=== PATIENT | male | born 1980 | race Caucasian/White ===

== ENCOUNTER 2017-03-07 16:09 | Emergency (ER) | payer BC ==
[2017-03-07] MEDS ORDERED: SODIUM CHLORIDE 0.9% 1,000 ML IV ONE (16:16)
[2017-03-07] MEDS ORDERED: ONDANSETRON 4 MG/2 ML VIAL IVP STA ×2 (16:16→18:57)
[2017-03-07] MEDS ORDERED: KETOROLAC 30 MG/ML 1 ML VIAL IVP STA (16:16)
[2017-03-07 16:20] VITALS: RESP 18
[2017-03-07 16:43] LABS: Basophils % (A) 0 %; Eosinophils # (A) 0.2 k/uL (0-0.7); Eosinophils % (A) 2 %; HCT 44.2 % (39.0-53.0); Hyperchromasia Slight; Lymphocytes # (A) 0.4 k/uL (1.0-4.8); Lymphocytes % (A) 4 %; MCH 29.9 pg (25.0-35.0); MCHC 36.2 g/dL (31.0-37.0); MCV 82.4 fL (80.0-100.0); Mean Platelet Volume 6.5; Monocytes # (A) 0.4 k/uL (0-1.0); Monocytes % (A) 4 %; Neutrophils # (A) 8.5 k/uL (1.3-7.7); Neutrophils % (A) 89 %; Platelet Count 227 k/uL (150-450); RBC 5.37 m/uL (4.30-5.90); RDW 12.7 % (11.5-15.5); WBC 9.6 k/uL (3.8-10.6)
[2017-03-07 16:55] LABS: ALT 66 U/L (21-72); AST 28 U/L (17-59); Albumin 4.1 g/dL (3.5-5.0); Alkaline Phosphatase 74 U/L (38-126); Blood Urea Nitrogen 18 mg/dL (9-20); Calcium 9.2 mg/dL (8.4-10.2); Carbon Dioxide 26 mmol/L (22-30); Glucose 112 mg/dL (74-99); Lipase 70 U/L (23-300); Potassium 4.2 mmol/L (3.5-5.1); Sodium 139 mmol/L (137-145); Total Bilirubin 1.8 mg/dL (0.2-1.3); Total Protein 7.4 g/dL (6.3-8.2)
[2017-03-07 16:56] LABS: Anion Gap 9 mmol/L; Chloride 104 mmol/L (98-107)
--- NOTE | 2017-03-07 17:04 | ED ---
Abdominal Pain HPI - General Stated Complaint: Abd pain Time Seen by Provider: 03/07/17 16:15 Source: patient, EMS Mode of arrival: EMS Limitations: no limitations - History of Present Illness Initial Comments: 36 year male presented for evaluation of upper abdominal pain. He states that the pain is a sharp aching gnawing pain that is in his epigastric and right upper quadrant however there is some radiation to the left upper quadrant as well. He is unsure if there is any relation to by mouth intake as he has had nausea and nonbloody nonbilious vomiting with his symptoms. He denies any chest pain or shortness of breath however he has had some subjective fevers. There are no other family members in the home with similar symptoms. He denies any previous abdominal surgeries and hasn't taken any medications for improvement of his symptoms. He further denies any dysuria, diarrhea, or constipation. - Related Data Home Medications Medication Instructions Recorded Confirmed Ibuprofen [Motrin] 400 mg PO Q6HR PRN 03/07/17 03/07/17 Loratadine [Claritin] 10 mg PO DAILY PRN 03/07/17 03/07/17 Previous Rx's Medication Instructions Recorded Ranitidine HCl [Zantac] 150 mg PO BID #30 tab 03/07/17 Sucralfate [Carafate] 1 gm PO BID #150 ml 03/07/17 Allergies Allergy/AdvReac Type Severity Reaction Status Date / Time No Known Allergies Allergy Verified 03/07/17 16:34 Review of Systems ROS Statement: Those systems with pertinent positive or pertinent negative responses have been documented in the HPI. ROS Other: All systems not noted in ROS Statement are negative. Constitutional: Denies: fever, chills Eyes: Denies: eye pain, eye discharge, vision change ENT: Denies: ear pain, throat pain Respiratory: Denies: cough, dyspnea Cardiovascular: Denies: chest pain, palpitations Endocrine: Denies: fatigue, polydipsia, polyuria Gastrointestinal: Reports: abdominal pain, nausea. Denies: vomiting, diarrhea, constipation, hematemesis, melena Genitourinary: Denies: urgency, dysuria, discharge Musculoskeletal: Denies: back pain, arthralgia Skin: Denies: rash, lesions Neurological: Denies: headache, weakness Psychiatric: Denies: anxiety, depression Hematological/Lymphatic: Denies: easy bleeding, easy bruising Past Medical History Past Medical History: No Reported History History of Any Multi-Drug Resistant Organisms: None Reported Past Surgical History: Orthopedic Surgery Additional Past Surgical History / Comment(s): left elbow surgery, Past Psychological History: No Psychological Hx Reported Smoking Status: Never smoker Past Alcohol Use History: Occasional Past Drug Use History: None Reported General Exam Limitations: no limitations General appearance: alert, in distress (mild) Head exam: Present: atraumatic, normocephalic, normal inspection Eye exam: Present: normal appearance, PERRL, EOMI. Absent: scleral icterus, conjunctival injection, periorbital swelling ENT exam: Present: normal exam, mucous membranes moist Neck exam: Present: normal inspection. Absent: tenderness, meningismus, lymphadenopathy Respiratory exam: Present: normal lung sounds bilaterally. Absent: respiratory distress, wheezes, rales, rhonchi, stridor Cardiovascular Exam: Present: regular rate, normal rhythm, normal heart sounds. Absent: systolic murmur, diastolic murmur, rubs, gallop, clicks GI/Abdominal exam: Present: soft, tenderness (ruq with positive Gonzalez's sign). Absent: distended, guarding, rebound, rigid Rectal exam: Present: deferred Extremities exam: Present: normal inspection, full ROM, normal capillary refill. Absent: tenderness, pedal edema, joint swelling, calf tenderness Back exam: Present: normal inspection Neurological exam: Present: alert, oriented X3, CN II-XII intact Psychiatric exam: Present: normal affect, normal mood Skin exam: Present: warm, dry, intact, normal color. Absent: rash Course Vital Signs 03/07/17 03/07/17 16:11 20:22 Temperature 100.5 F H 100.4 F H Pulse Rate 97 90 Respiratory 18 18 Rate Blood Pressure 151/83 149/86 O2 Sat by Pulse 98 97 Oximetry Medical Decision Making - Medical Decision Making 36-year-old male with past history as noted above presented for evaluation of epigastric and right upper quadrant abdominal pain. On physical examination he appears to be in mild distress and has tenderness to the right upper quadrant and epigastric abdomen. There is positive Gonzlaez sign. Remainder of his physical exam is benign and his abdomen is soft without peritoneal signs of guarding, rigidity, or rebound. Although the patient does state that he is been taking NSAIDs at an increasing rate due to tendinitis which would lend itself to peptic ulcer disease versus gastritis he does have positive Gonzalez sign which raises concern for cholecystitis. We'll obtain labs , ultrasound abdomen, and provide pain control, IV fluids, and Zofran. Throat no significant abnormalities and ultrasound showed no acute abnormalities. Patient was reevaluated and had improvement in his symptoms. He was informed of all results and through shared decision making it was determined that he be discharged with instructions to follow-up with his primary care physician but to return to this facility if symptoms should worsen or persist. The patient acknowledged an understanding of information provided and agreed with this plan of care. - Lab Data Result diagrams: 03/07/17 16:30 03/07/17 16:30 Lab Results 03/07/17 03/07/17 03/07/17 Range/Units 16:30 16:30 16:30 WBC 9.6 (3.8-10.6) k/uL RBC 5.37 (4.30-5.90) m/uL Hgb 16.0 (13.0-17.5) gm/dL Hct 44.2 (39.0-53.0) % MCV 82.4 (80.0-100.0) fL MCH 29.9 (25.0-35.0) pg MCHC 36.2 (31.0-37.0) g/dL RDW 12.7 (11.5-15.5) % Plt Count 227 (150-450) k/uL Neutrophils % 89 % Lymphocytes % 4 % Monocytes % 4 % Eosinophils % 2 % Basophils % 0 % Neutrophils # 8.5 H (1.3-7.7) k/uL Lymphocytes # 0.4 L (1.0-4.8) k/uL Monocytes # 0.4 (0-1.0) k/uL Eosinophils # 0.2 (0-0.7) k/uL Basophils # 0.0 (0-0.2) k/uL Hyperchromasia Slight Sodium 139 (137-145) mmol/L Potassium 4.2 (3.5-5.1) mmol/L Chloride 104 (98-107) mmol/L Carbon Dioxide 26 (22-30) mmol/L Anion Gap 9 mmol/L BUN 18 (9-20) mg/dL Creatinine 0.80 (0.66-1.25) mg/dL Est GFR (MDRD) Af Amer >60 (>60 ml/min/1.73 sqM) Est GFR (MDRD) Non-Af >60 (>60 ml/min/1.73 sqM) Glucose 112 H (74-99) mg/dL Plasma Lactic Acid Rasheed 1.7 (0.7-2.0) mmol/L Calcium 9.2 (8.4-10.2) mg/dL Total Bilirubin 1.8 H (0.2-1.3) mg/dL AST 28 (17-59) U/L ALT 66 (21-72) U/L Alkaline Phosphatase 74 (38-126) U/L Total Protein 7.4 (6.3-8.2) g/dL Albumin 4.1 (3.5-5.0) g/dL Lipase 70 (23-300) U/L Disposition Clinical Impression: Abdominal pain Disposition: HOME SELF-CARE Condition: Stable Instructions: Gastroesophageal Reflux Disease (ED), Indigestion (ED), Abdominal Pain (ED) Additional Instructions: Please use medication as discussed. Please follow up with family doctor if symptoms have not improved over the next two days. Please return to the emergency room if your symptoms increase or worsen or for any other concerns. Prescriptions: Ranitidine HCl [Zantac] 150 mg PO BID #30 tab Sucralfate [Carafate] 1 gm PO BID #150 ml Referrals: None,Stated [Primary Care Provider] - 1-2 days Mary Walter DO [Doctor of Osteopathic Medicine] - 1-2 days Betty Weller MD [STAFF PHYSICIAN] - 1-2 days Time of Disposition: 19:50
[2017-03-07] MEDS ORDERED: MORPHINE SULFATE 5 MG/ML SYRINGE IVP STA (18:57)
[2017-03-07] MEDS ORDERED: MAG HYDROX/AL HYDROX/SIMETH 30 ML, HYOSCYAMINE ELIXIR 10 ML, CIMETIDINE HCL 300 MG, LID... PO STA ×4 (18:58)
--- NOTE | 2017-03-07 19:37 | US ---
EXAMINATION TYPE: US abdomen limited DATE OF EXAM: 03/07/2017 COMPARISON: NONE CLINICAL HISTORY: Upper abdominal pain radiating into legs with nausea. EXAM MEASUREMENTS: Liver Length: 21.6 cm Gallbladder Wall: 0.2 cm CBD: 0.4 cm Right Kidney: 12.1 x 4.8 x 5.6 cm Limited due to liver density and bowel gas. Pancreas: Normal, Tail obscured by overlying bowel gas Liver: Increased attenuation, decreased visualization of vessels suggestive of moderate fatty infilt rate, hepatomegaly , liver length is greater than 15.5 cm. Gallbladder: wnl Evidence for sonographic Gonzalez's sign: No CBD: Obscured by overlying bowel gas, portion visualized appears prominent Right Kidney: wnl IMPRESSION: 1. Hepatomegaly with moderate fatty infiltration. 2. There is some limitation due to bowel gas
[2017-03-07 20:23] VITALS: BP 149/86; PULSE 90; TEMP 100.4
== END 2017-03-07 20:22 | disposition home or self-care (01) ==
LOC: EC 16:09
DX: R10.11 Right upper quadrant pain (principal); R10.12 Left upper quadrant pain; R10.13 Epigastric pain; R11.2 Nausea with vomiting, unspecified; R50.9 Fever, unspecified
CPT/HCPCS: 99285; 96374; 96375 ×2; 96376; 96361; 36415; 80053; 83605; 83690; 85025; 76705; J2405; J1885; J2274

== ENCOUNTER 2017-04-30 08:46 | Day surgery (SDC) | payer BC ==
[2017-04-28 14:26] VITALS: BMI 33.9
[~2017-04-30 08:46] MED LIST: LACTATED RINGERS 1,000 ML IV SCH
[2017-04-30] MEDS ORDERED: LIDOCAINE 1% 20 ML VIAL (10MG/ML) FOR IV START INTRADERMA ONE (08:59)
[2017-04-30 09:00] VITALS: RESP 16; TEMP 97.1
[2017-04-30] MEDS ORDERED: LIDOCAINE 1% INJ 10MG/ML (20 ML MDV) ONE (09:49)
[2017-04-30] MEDS ORDERED: fentaNYL (PF) 50 MCG/ML 2 ML AMP ONE (09:49)
[2017-04-30] MEDS ORDERED: MIDAZOLAM 2 MG/2 ML VIAL ONE (09:49)
[2017-04-30] MEDS ORDERED: PROPOFOL 10 MG/ML 20 ML VIAL IV ONE (09:49)
--- NOTE | 2017-04-30 10:04 | P.PCN ---
Date of Procedure: 04/30/17 Procedure(s) Performed: BRIEF HISTORY: Patient is a 36-year-old, pleasant, white male, scheduled for an upper endoscopy as a part of evaluation of epigastric pain and intermittent dysphagia to solids for the last few weeks duration. Dysphagia is often with solids but not liquids. He went to the emergency room with severe epigastric pain and was started on Zantac 150 milligrams twice and since then the abdominal pain has resolved.. PROCEDURE PERFORMED: Esophagogastroduodenoscopy with biopsy. PREOPERATIVE DIAGNOSIS: Intermittent dysphagia to solids and epigastric pain. IV sedation per anesthesia. PROCEDURE: After informed consent was obtained, the patient was brought into the endoscopy unit. IV sedation was administered by Anesthesia under continuous monitoring. Initially the Olympus GIF-140 video endoscope was inserted into the mouth. Esophagus intubated without any difficulty. It was gradually advanced into the stomach and duodenum and carefully examined. The bulb and the second part of the duodenum appeared normal showed mild duodenitis.. The scope at this time was withdrawn to the stomach, adequately insufflated with air, and upon careful examination, mucosa of the antrum, had gastritis and biopsies were done from this area. The body, cardia and the fundus appeared normal. The scope was then withdrawn into the esophagus. The GE junction was located at 39 cm from the incisors. There was mucosal fold thickening in the mid and distal esophagus with longitudinal ridges and furrows and superficial mucosal rings consistent with eosinophilic esophagitis and multiple biopsies were done from the mid and distal esophagus. The rest of the esophagus appeared normal and the patient tolerated the procedure well. IMPRESSION: 1. Mild gastritis and duodenitis. 2. Thickened esophageal folds in the mid and distal esophagus with multiple superficial mucosal rings consistent with eosinophilic esophagitis, status post multiple biopsies. RECOMMENDATIONS: The findings of this examination were discussed with the patient as well as his family. He was advised to follow with the biopsy results. In the meantime he will continue with Zantac 150 milligrams twice daily. He'll be seen in office in 2 weeks..
[2017-04-30 10:26] VITALS: BP 136/92; PULSE 82
== END 2017-04-30 10:49 | disposition home or self-care (01) ==
LOC: ORWHC2ENDO 08:46
PROVIDERS: ATTEND Internal Medicine Gastroenterology
DX: K29.80 Duodenitis without bleeding (principal); K29.50 Unspecified chronic gastritis without bleeding; K21.0 Gastro-esophageal reflux disease with esophagitis; Z79.1 Long term (current) use of non-steroidal anti-inflammatories (NSAID); Z79.899 Other long term (current) drug therapy
CPT/HCPCS: 88305; 43239; J2250; J2001; J3010; J2704

== ENCOUNTER 2018-06-04 11:45 | Inpatient (IN) | payer BC ==
[2018-06-04] MEDS ORDERED: IBUPROFEN 400 MG TAB PO STA (12:24)
--- NOTE | 2018-06-04 12:52 | ED ---
Fever HPI <Lavelle Taylor Vaishali - Last Filed: 06/04/18 14:11> - General Source: patient Mode of arrival: ambulatory Limitations: no limitations <Lyn Hinton - Last Filed: 06/04/18 15:53> - General Chief Complaint: Fever Stated Complaint: FLU LIKE SYMPTOMS Time Seen by Provider: 06/04/18 12:02 - History of Present Illness Initial Comments: 37-year-old male who denies past medical history presenting today for chief complaint of persistent fever, cough and chest pain. Patient states that he has had a fever since Wednesday with T-max of 103 Fahrenheit. Patient states it has been persistent and he was tested for influenza, this returned negative. Patient states he has had a cough as well as a pain in the center of the chest that had begun last night and persisted into this morning and today. Patient denies change in characteristic of chest pain with exertion, he denies any change in chest pain with deep breaths. Patient states he notices it when lying flat. Denies any leg swelling, jaw pain or UE paresthesias. Patient states he has been producing clear sputum, and has had mild shortness of breath. Patient denies any abdominal pain he states he has had some nausea and soft stools. Denies any vomiting, melena hematochezia or hematemesis. Patient states he has had diffuse body aches and on and off mild ache. Patient states he took ibuprofen earlier this morning. Pt denies 2 diabetes, hypertension, lipidemia, heart attack, he denies family history of myocardial infarction or CVA including parents/grandparents. She denies any personal history of cancer, upper or lower back pain, recent travel, calf pain, history of DVT/PE or recent surgeries. Patient is a nonsmoker, lifetime. Patient denies any recent numbness or tingling, dysuria or hematuria, constipation,visual changes, or any other complaints. Upon arrival patient VS WNL. (Lyn Hinton) - Related Data Home Medications Medication Instructions Recorded Confirmed Ibuprofen [Motrin Ib] 400 mg PO Q6HR PRN 06/04/18 06/04/18 Allergies Allergy/AdvReac Type Severity Reaction Status Date / Time No Known Allergies Allergy Verified 06/04/18 14:28 Review of Systems ROS Other: All systems not noted in ROS Statement are negative. <Lavelle Taylor - Last Filed: 06/04/18 14:11> ROS Other: All systems not noted in ROS Statement are negative. <Lyn Hinton - Last Filed: 06/04/18 15:53> ROS Statement: Those systems with pertinent positive or pertinent negative responses have been documented in the HPI. Past Medical History Past Medical History: No Reported History Additional Past Medical History / Comment(s): HAS BEEN HAVING DIFFICULTY SWALLOWING. SEASONAL ALLERGIES History of Any Multi-Drug Resistant Organisms: None Reported Past Surgical History: Orthopedic Surgery Additional Past Surgical History / Comment(s): left elbow surgery, Past Anesthesia/Blood Transfusion Reactions: Motion Sickness Past Psychological History: No Psychological Hx Reported Smoking Status: Never smoker Past Alcohol Use History: None Reported Past Drug Use History: None Reported - Past Family History Father Family Medical History: Cancer Additional Family Medical History / Comment(s): LUNG Mother Family Medical History: Musculoskeletal Disorder Additional Family Medical History / Comment(s): FROM ALS <Lyn Hinton - Last Filed: 06/04/18 15:53> General Exam Limitations: no limitations <Lyn Hinton - Last Filed: 06/04/18 15:53> - General Exam Comments Initial Comments: General: The patient is awake and alert. Eye: +3 mm pupils are equal, round and reactive to light, extra-ocular movements are intact. No nystagmus. There is normal conjunctiva bilaterally. No signs of icterus. No photophobia Ears, nose, mouth and throat: There are moist mucous membranes and no oral lesions. Oropharynx was not erythematous there is no tonsillar enlargement exudates or lesions. Uvula midline. Tympanic membranes are not erythematous or is no effusions bulging or retraction. No tenderness to palpation of the mastoid. No anterior cervical lymphadenopathy. Rhinorrhea, clear and bilateral nares. No tripoding, no drooling. Neck: The neck is supple, there is no tenderness or JVD. No nuchal rigidity negative Brudzinski and Kernig Cardiovascular: There is a regular rate and rhythm. No murmur, rub or gallop is appreciated. Respiratory: Lungs are clear to auscultation, respirations are non-labored, breath sounds are equal. No wheezes, stridor, rales, or rhonchi. No retractions or abdominal breathing. Gastrointestinal: Soft, non-distended, non-tender abdomen without masses or organomegaly noted. There is no rebound or guarding present. Bowel sounds are unremarkable. Musculoskeletal: No tenderness to patient the anterior chest wall. Normal ROM, no tenderness. Strength 5/5. Sensation intact. Radial pulses equal bilaterally 2+. Neurological: A&O x 3. CN II-XII intact, There are no obvious motor or sensory deficits. Coordination appears grossly intact. Speech appears normal, no muffling. Skin: Skin is warm and dry and no rashes or lesions are noted. No extremity edema Psychiatric: Cooperative (Lyn Hinton) Course <Lyn Hinton - Last Filed: 06/04/18 15:53> Vital Signs 06/04/18 06/04/18 06/04/18 11:46 13:10 15:00 Temperature 98.8 F 101.0 F H 100.7 F H Pulse Rate 87 76 72 Respiratory 18 18 16 Rate Blood Pressure 133/88 125/84 121/63 O2 Sat by Pulse 99 97 98 Oximetry - Reevaluation(s) Reevaluation #1: EKG revealed diffuse NV depression, Tropinin 5. Concern for t 06/04/18 13:57 (Lyn Hinton) Medical Decision Making - Lab Data Result diagrams: 06/04/18 12:40 06/04/18 12:40 <Lavelle Taylor - Last Filed: 06/04/18 14:11> - Lab Data Result diagrams: 06/04/18 12:40 06/04/18 12:40 <Lyn Hinton - Last Filed: 06/04/18 15:53> - Medical Decision Making 37-year-old male presenting with flulike symptoms for the past one week, patient developed chest pain over the past several days which became more severe approximately 12 hours prior to arrival. EKG shows diffuse ST segment elevation and NV depression consistent with pericarditis. Patient has no risk factors for CAD, no diabetes, no hypertension, nonsmoker, no family history. Troponin is obtained in the emergency department which is 5 consistent with perimyocarditis. Stat echo will be obtained, discussed case with Dr. Horne, will hold any other treatment at this time, he will be able to evaluate the patient in the emergency department. I discussed case with Dr. Jensen, will accept admission. (Lavelle Taylor) 37-year-old male presenting for fever, flulike symptoms and chest pain. Patient has no risk factors for coronary artery disease, denies family history. Patient is nonsmoker. There was concern for pericarditis. EKG was obtained revealing diffuse NV depression/ST elevation. Troponin returned elevated 5. Patient states pain is increased with lying flat, with some relief leaning forward. I discussed the case immediately with attending provider, he reviewed EKG as well as laboratory studies. Cardiology was consult it immediately Dr. Taylor spoke with Dr. Horne who came to emergency department to evaluate patient, he reviewed EKG. Stat Echo was obtained. Small amount of pericardial fluid noted, heart function appears preserved. At this time to Chinese diagnosis including s evere pericarditis vs myocarditis. She was given ibuprofen while in the emergency department. Dr. Horne recommended repeat troponin as well as addition of colchicine 0.6 mg twice a day. All findings were discussed with patient. At this time we will admit patient to medicine with cardiology on consult. Dr Jensen accepted admission. Pt transferred to floor in stable condition. She remained hemodynamically stable throughout this emergency room. There is no findings on clinical examination for heart failure. (Lyn Hinton) - Lab Data Lab Results 06/04/18 06/04/18 06/04/18 Range/Units 12:00 12:40 12:40 WBC 5.1 (3.8-10.6) k/uL RBC 5.37 (4.30-5.90) m/uL Hgb 15.3 (13.0-17.5) gm/dL Hct 44.0 (39.0-53.0) % MCV 81.9 (80.0-100.0) fL MCH 28.5 (25.0-35.0) pg MCHC 34.7 (31.0-37.0) g/dL RDW 12.6 (11.5-15.5) % Plt Count 207 (150-450) k/uL Neutrophils % (Manual) 53 % Band Neutrophils % 5 % Lymphocytes % (Manual) 34 % Monocytes % (Manual) 8 % Neutrophils # (Manual) 2.90 (1.3-7.7) k/uL Lymphocytes # (Manual) 1.73 (1.0-4.8) k/uL Monocytes # (Manual) 0.41 (0-1.0) k/uL Nucleated RBCs 0 (0-0) /100 WBC Manual Slide Review Performed RBC Morphology Normal Sodium 140 (137-145) mmol/L Potassium 4.2 (3.5-5.1) mmol/L Chloride 102 (98-107) mmol/L Carbon Dioxide 29 (22-30) mmol/L Anion Gap 9 mmol/L BUN 13 (9-20) mg/dL Creatinine 0.76 (0.66-1.25) mg/dL Est GFR (CKD-EPI)AfAm >90 (>60 ml/min/1.73 sqM) Est GFR (CKD-EPI)NonAf >90 (>60 ml/min/1.73 sqM) Glucose 116 H (74-99) mg/dL Calcium 9.0 (8.4-10.2) mg/dL Total Bilirubin 1.9 H (0.2-1.3) mg/dL AST 91 H (17-59) U/L ALT 71 (21-72) U/L Alkaline Phosphatase 78 (38-126) U/L Troponin I (0.000-0.034) ng/mL NT-Pro-B Natriuret Pep pg/mL Total Protein 7.4 (6.3-8.2) g/dL Albumin 4.1 (3.5-5.0) g/dL Influenza Type A RNA Not Detected (Not Detectd) Influenza Type B (PCR) Not Detected (Not Detectd) 06/04/18 06/04/18 Range/Units 12:40 12:40 WBC (3.8-10.6) k/uL RBC (4.30-5.90) m/uL Hgb (13.0-17.5) gm/dL Hct (39.0-53.0) % MCV (80.0-100.0) fL MCH (25.0-35.0) pg MCHC (31.0-37.0) g/dL RDW (11.5-15.5) % Plt Count (150-450) k/uL Neutrophils % (Manual) % Band Neutrophils % % Lymphocytes % (Manual) % Monocytes % (Manual) % Neutrophils # (Manual) (1.3-7.7) k/uL Lymphocytes # (Manual) (1.0-4.8) k/uL Monocytes # (Manual) (0-1.0) k/uL Nucleated RBCs (0-0) /100 WBC Manual Slide Review RBC Morphology Sodium (137-145) mmol/L Potassium (3.5-5.1) mmol/L Chloride (98-107) mmol/L Carbon Dioxide (22-30) mmol/L Anion Gap mmol/L BUN (9-20) mg/dL Creatinine (0.66-1.25) mg/dL Est GFR (CKD-EPI)AfAm (>60 ml/min/1.73 sqM) Est GFR (CKD-EPI)NonAf (>60 ml/min/1.73 sqM) Glucose (74-99) mg/dL Calcium (8.4-10.2) mg/dL Total Bilirubin (0.2-1.3) mg/dL AST (17-59) U/L ALT (21-72) U/L Alkaline Phosphatase (38-126) U/L Troponin I 5.750 H* (0.000-0.034) ng/mL NT-Pro-B Natriuret Pep 471 pg/mL Total Protein (6.3-8.2) g/dL Albumin (3.5-5.0) g/dL Influenza Type A RNA (Not Detectd) Influenza Type B (PCR) (Not Detectd) - EKG Data EKG Comments: Ventricular rate 81 bpm, NV interval 146 ms, QRS duration 100 ms, QT/QTC 344/399 ms. Diffuse NV depression. Normal sinus. (Lyn Hinton) Disposition <Lavelle Taylor - Last Filed: 06/04/18 14:11> Time of Disposition: 14:15 Decision to Admit Reason: Admit from EC Decision Date: 06/04/18 Decision Time: 14:16 <Lyn Hinton - Last Filed: 06/04/18 15:53> Clinical Impression: Myocarditis Disposition: ADMITTED IP TO THIS HOSP Condition: Stable
--- NOTE | 2018-06-04 13:14 | XR ---
EXAMINATION TYPE: XR chest 2V DATE OF EXAM ORDERED: 06/04/2018 HISTORY: Cough and shortness of breath. REFERENCE: None. FINDINGS: The lungs are clear. Pleural spaces are clear. Heart size is normal. IMPRESSION: NORMAL CHEST.
[2018-06-04 13:15] LABS: ALT 71 U/L (21-72); AST 91 U/L (17-59); Albumin 4.1 g/dL (3.5-5.0); Alkaline Phosphatase 78 U/L (38-126); Anion Gap 9 mmol/L; Blood Urea Nitrogen 13 mg/dL (9-20); Carbon Dioxide 29 mmol/L (22-30); Chloride 102 mmol/L (98-107); Glucose 116 mg/dL (74-99); Potassium 4.2 mmol/L (3.5-5.1); Sodium 140 mmol/L (137-145); Total Bilirubin 1.9 mg/dL (0.2-1.3); Total Protein 7.4 g/dL (6.3-8.2)
[2018-06-04 13:40] LABS: HGB 15.3 gm/dL (13.0-17.5); MCH 28.5 pg (25.0-35.0); MCHC 34.7 g/dL (31.0-37.0); MCV 81.9 fL (80.0-100.0); Mean Platelet Volume 6.8; Platelet Count 207 k/uL (150-450); RBC 5.37 m/uL (4.30-5.90); RDW 12.6 % (11.5-15.5); WBC 5.1 k/uL (3.8-10.6)
[2018-06-04] MEDS ORDERED: MORPHINE SULFATE 4 MG/ML SYRINGE IVP STA (13:58)
[2018-06-04] MEDS ORDERED: NALOXONE 0.4 MG/ML 1 ML VIAL IV PRN (14:12)
[2018-06-04] MEDS ORDERED: MORPHINE SULFATE 4 MG/ML SYRINGE IV PRN (14:12)
[2018-06-04] MEDS ORDERED: IBUPROFEN 400 MG TAB PO PRN (14:12)
[2018-06-04] MEDS ORDERED: ACETAMINOPHEN TAB 325 MG TAB PO PRN (14:12)
[2018-06-04 14:27] LABS: Band Neutrophils % 5 %; Lymphocytes # (M) 1.73 k/uL (1.0-4.8); Monocytes # (M) 0.41 k/uL (0-1.0); Neutrophils % (M) 53 %; Nucleated Red Blood Cells 0 /100 WBC (0-0); Total Cells Counted 100
[2018-06-04] MEDS: SODIUM CHLORIDE 0.9% 1,000 ML IV SCH (15:05)
[2018-06-04 15:43] VITALS: BMI 32.8
[2018-06-04] MEDS: COLCHICINE 0.6 MG EACH PO SCH (16:26)
--- NOTE | 2018-06-04 17:28 | P.HPIM ---
History of Present Illness H&P Date: 06/04/18 Patient is a 37-year-old male with no significant PMH who presented to the ED for chest pain and fevers area the patient notes that he was in his usual state of health until about one week ago when he developed URI symptoms with a nonproductive cough, and body aches. A few days later he developed fevers and subsequently went to the urgent care center where he was tested for influenza and was negative. He subsequently then developed substernal chest pain with radiation to the back, 7 out of 10, constant, alleviated by sitting up or leaning forward, and worsened by laying down or taking deep breaths. The chest pain gradually worsened over the past 2-3 days at which point he decided to come to the ED. The patient notes that he has never had such symptoms the past. He further denied any family history of premature coronary artery disease or personal history of prior MIs or any heart disease. The patient reported that his daughters had recently been sick and one of them had an RSV infection a few weeks ago. 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 Aside from the chest pain and fever, the patient denies shortness of breath, nausea, palpitations, vomiting, diarrhea, or recent travel. At time of interview, the patient reported that his pain had improved to 4 out of 10. In the emergency room, the patient underwent an extensive evaluation. He was noted to be febrile to 101F, with normal pulse, blood pressure, and SpO2. Laboratory evaluation revealed an elevated troponin of 5.750, with chest x-ray being unremarkable, and total bilirubin elevated to 1.9. His WBC count was 5.1, hemoglobin 15, platelets low at 116, and creatinine 0.76. On EKG, the patient was noted to have sinus rhythm at 81 bpm with diffuse NE depression and ST elevations. The patient was subsequently admitted to the medicine service for acute pericarditis. Review of Systems Pertinent positives and negatives as discussed in HPI, a complete review of systems was performed and all other systems are negative. Past Medical History Past Medical History: No Reported History Additional Past Medical History / Comment(s): HAS BEEN HAVING DIFFICULTY SWALL OWING. SEASONAL ALLERGIES History of Any Multi-Drug Resistant Organisms: None Reported Past Surgical History: Orthopedic Surgery Additional Past Surgical History / Comment(s): left elbow surgery, Past Anesthesia/Blood Transfusion Reactions: Motion Sickness Past Psychological History: No Psychological Hx Reported Smoking Status: Never smoker Past Alcohol Use History: None Reported Past Drug Use History: None Reported - Past Family History Father Family Medical History: Cancer Additional Family Medical History / Comment(s): LUNG Mother Family Medical History: Musculoskeletal Disorder Additional Family Medical History / Comment(s): FROM ALS Medications and Allergies Home Medications Medication Instructions Recorded Confirmed Type Ibuprofen [Motrin Ib] 400 mg PO Q6HR PRN 06/04/18 06/04/18 History Allergies Allergy/AdvReac Type Severity Reaction Status Date / Time No Known Allergies Allergy Verified 06/04/18 14:28 Physical Exam Vitals: Vital Signs Temp Pulse Pulse Resp BP BP Pulse Ox 06/04/18 16:00 98 F 75 17 135/78 96 06/04/18 15:00 100.7 F H 72 16 121/63 98 06/04/18 13:10 101.0 F H 76 18 125/84 97 06/04/18 11:46 98.8 F 87 18 133/88 99 Intake and Output 06/04/18 06/04/18 06/04/18 06:59 14:59 22:59 Other: Weight 109.769 kg General: Non-toxic, in no acute distress, appears stated age, obese HEENT: NC/AT, anicteric sclerae, moist conjunctiva, no lid-lag, PERRLA Cardiovascular: S1/S2 wnl, no murmurs, rubs, or gallops Lungs: Clear to auscultation, normal respiratory effort, no accessory muscle use Abdominal: Soft, non-tender, non-distended, no guarding, rebound, or rigidity Skin: Warm, dry Extremities: No edema or contractures Psychiatric: Alert and oriented to person, place and time, appropriate affect Neuro: CN II-XII grossly intact, Strength 5/5 in all 4 extremities, Speech intact, Sensation to light touch grossly intact throughout Results CBC & Chem 7: 06/04/18 12:40 06/04/18 12:40 Labs: Abnormal Lab Results - Last 24 Hours (Table) 06/04/18 06/04/18 Range/Units 12:40 12:40 Glucose 116 H (74-99) mg/dL Total Bilirubin 1.9 H (0.2-1.3) mg/dL AST 91 H (17-59) U/L Troponin I 5.750 H* (0.000-0.034) ng/mL Thrombosis Risk Factor Assmnt - Choose All That Apply Any of the Below Risk Factors Present?: No Assessment and Plan Plan: Acute viral pericarditis -Cardiology consulted -Echocardiogram to assess for pericardial effusion -Trend troponin -Cardiac monitoring -We'll continue with ibuprofen 600 mg every 8 hourly -Start colchicine 0.6 mg twice a day -Continue with normal saline 50 mL an hour DVT//GI prophylaxis -Heparin -Protonix The patient is admitted with an anticipated greater than 2 midnight stay for evaluation of pericarditis. CODE STATUS: Full Code Discussed with: Patient Anticipated discharge date: 06/06/[address]: Home A total of 45 minutes was spent on the care of this complex patient more than 50% of the time was spent in counseling and care coordination.
--- NOTE | 2018-06-04 18:08 | ECHOF ---
Referral Reason:myocardiditis MEASUREMENTS -------- HEIGHT: 182.9 cm WEIGHT: 109.8 kg BP: 125/84 RVIDd: 2.9 cm (< 3.3) IVSd: 1.3 cm (0.6 - 1.1) LVIDd: 5.1 cm (3.9 - 5.3) LVPWd: 1.3 cm (0.6 - 1.1) IVSs: 1.5 cm LVIDs: 4.0 cm LVPWs: 1.5 cm LAESV Index (A-L): 23.21 ml/m Ao Diam: 3.6 cm (2.0 - 3.7) AV Cusp: 2.2 cm (1.5 - 2.6) LA Diam: 3.1 cm (2.7 - 3.8) EPSS: 0.6 cm MV E Benito: 0.83 m/s MV DecT: 275 ms MV A Benito: 0.62 m/s MV E/A Ratio: 1.33 RAP: 5.00 mmHg RVSP: 9.45 mmHg MV EF SLOPE: 154.20 mm/s (70 - 150) MV EXCURSION: 2.17 cm (> 18.000) FINDINGS -------- Sinus rhythm. This was a technically adequate study. The left ventricular size is normal. There is mild concentric left ventricular hypertrophy. Overa ll left ventricular systolic function is normal with, an EF between 55 - 60 %. The right ventricle is normal in size and function. Normal LA size by volume 22+/-6 ml/m2. The right atrium is normal in size. Aortic valve is trileaflet and is mildly thickened. There is no evidence of aortic regurgitation. There is no evidence of aortic stenosis. The mitral valve leaflets are mildly thickened. Mild mitral regurgitation is present. Trace tricuspid regurgitation present. Right ventricular systolic pressure is normal at < 35 mmHg. There is no evidence of pulmonary hypertension. Trace/mild (physiologic) pulmonic regurgitation. The aortic root size is normal. Normal inferior vena cava with normal inspiratory collapse consistent with estimated right atrial pre ssure of 5 mmHg. There is a trivial/small, generalized pericardial effusion present. CONCLUSIONS -------- 1. Sinus rhythm. 2. This was a technically adequate study. 3. The left ventricular size is normal. 4. There is mild concentric left ventricular hypertrophy. 5. Overall left ventricular systolic function is normal with, an EF between 55 - 60 %. 6. Normal LA size by volume 22+/-6 ml/m2. 7. Aortic valve is trileaflet and is mildly thickened. 8. The mitral valve leaflets are mildly thickened. 9. Mild mitral regurgitation is present. 10. Trace tricuspid regurgitation present. 11. Right ventricular systolic pressure is normal at < 35 mmHg. 12. There is no evidence of pulmonary hypertension. 13. Trace/mild (physiologic) pulmonic regurgitation. 14. The aortic root size is normal. DIRECTOR OF MARKET ANALYSIS: Josué Levine RDCS
--- NOTE | 2018-06-04 18:12 | CONS ---
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 Last Wednesday, he went to a urgent care facility and had influenza checkup and it was negative. On Wednesday, he started having discomfort in the chest which described as a vague sensation of sharp pain and pressure that seemed to be worse when he laid down and better somewhat when he lean forwards. The pain more or less became on and off throughout the day and finally came to the emergency room. His EKG revealed a sinus mechanism with early repolarization changes and TN depression best seen in lead 2. However, the initial troponin is 5.7, and therefore I was asked to see him. He does have pain. It seems to be worse when he lies down. I made him reproduce the pain on lying backwards but on leaning forward he seems to be better. Sometimes at the end of inspiration also he has some sharp pain. Echo has been performed at bedside while I was examining him and this revealed normal wall motion and thickness with normal ejection fraction and trivial to small pericardial effusion all around. PAST MEDICAL HISTORY: Unremarkable for any major medical problems. MEDICATIONS: No prescription medications. Occasionally uses Claritin. ALLERGIES: None. REVIEW OF SYSTEMS: For the last 1 week he is having body aches, fever, and also some cough and some body aches, but no nausea, vomiting, or diarrhea. PHYSICAL EXAMINATION: Blood pressure is 130/70, pulse rate is about 80 per minute. HEENT unremarkable. Fundus was not examined by me. Neck is supple. No JVD. I do not hear a carotid bruit. There is no thyromegaly. Heart exam reveals S1, S2 heard normally. I do not hear any pericardial rub. Lungs are clear. Abdomen is soft, nontender. Lower extremities reveal palpable pulses. No edema. Central nervous system is normal. The patient is febrile, fever was 101. IMPRESSION: 1. Probably a viral syndrome with probable viral myopericarditis. 2. Abnormal troponin could be related to myopericarditis, which is a clinical diagnosis because of TN depression. 3. Rule out any bacterial infection. RECOMMENDATION: I am recommending that we do blood cultures. Echocardiogram revealed a trivial to small pericardial effusion. I will treat him with colchicine 0.6 mg b.i.d., avoid heparin for the time being and perform serial troponins and then make further recommendations. The patient will also have a septic workup performed. I discussed my thoughts in detail with the patient. If Troponin trends significantly upwards and/or chest pain increases, will consider cath. Explained to Pt. in detail. Thank you very much for the consult. RAH / HÉCTOR: [id number] / MTDD
[2018-06-04] MEDS: IBUPROFEN 600 MG TAB PO SCH ×2 (18:37→20:58)
[2018-06-04] MEDS ORDERED: ONDANSETRON 4 MG/2 ML VIAL IVP PRN (21:08)
[2018-06-04] MEDS ORDERED: HEPARIN SODIUM,PORCINE 5,000 UNIT/ML 1 ML VIAL IV STA (21:19)
[2018-06-04] MEDS ORDERED: HEPARIN SOD,PORK IN 0.45% NACL 25,000 UNIT in 0.45% NACL 1 250ML.BAG IV SCH (22:00)
[2018-06-04] MEDS ORDERED: IV FLUID CONTINUATION 500 ML IV ONE (22:01)
[2018-06-04] MEDS ORDERED: MIDAZOLAM 2 MG/2 ML VIAL IVP ONE (22:14)
[2018-06-04] MEDS ORDERED: ASPIRIN 325 MG TAB PO ONE (22:17)
[2018-06-04] MEDS ORDERED: ASPIRIN 325 MG TAB ONE (22:18)
[2018-06-04] MEDS ORDERED: LIDOCAINE 1% INJ 10MG/ML (20 ML MDV) SQ ONE (22:18)
[2018-06-04] MEDS ORDERED: SODIUM CHLORIDE 0.9% 500 ML 500 ML IV ONE (22:24)
[2018-06-04] MEDS ORDERED: IOPAMIDOL-370 100ML BTL INJ ONE (22:42)
[2018-06-04] MEDS ORDERED: IOPAMIDOL-370 50ML BTL INJ ONE (22:43)
[2018-06-04] MEDS ORDERED: RX INFO: IV CONTRAST WAS GIVEN 1 EACH MISC MISCELLANE PRN (23:08)
[2018-06-04] MEDS ORDERED: SODIUM CHLORIDE 0.9% 1,000 ML IV SCH (23:15)
[2018-06-05] MEDS: COLCHICINE 0.6 MG EACH PO SCH ×3 (00:04→20:21)
--- NOTE | 2018-06-05 00:05 | CT ---
EXAM: CT Angiography Chest With Intravenous Contrast CLINICAL HISTORY: ITS.REASON CT Reason: R/O Pul Embolism, elev D-dimer TECHNIQUE: Axial computed tomographic angiography images of the chest with intravenous contrast using pulmonary embolism protocol. CTDI is 22 mGy and DLP is 667 mGy-cm. This CT exam was performed using one or more of the following dose reduction techniques: automated exposure control, adjustment of the mA and/or kV according to patient size, and/or use of iterative reconstruction technique. MIP reconstructed images were created and reviewed. COMPARISON: No relevant prior studies available. FINDINGS: Pulmonary arteries: No filling defects. Aorta: No thoracic aortic aneurysm. Lungs: No mass. No consolidation. Pleural space: No significant effusion. No pneumothorax. Heart: No cardiomegaly or pericardial effusion. Bones/joints: No acute fracture or dislocation. Soft tissues: Unremarkable. Lymph nodes: No enlarged lymph nodes. IMPRESSION: No acute intrathoracic findings.
[2018-06-05 06:59] LABS: Anion Gap 5 mmol/L; Blood Urea Nitrogen 13 mg/dL (9-20); Calcium 8.5 mg/dL (8.4-10.2); Carbon Dioxide 29 mmol/L (22-30); Chloride 106 mmol/L (98-107); Glucose 108 mg/dL (74-99); Potassium 4.6 mmol/L (3.5-5.1); Sodium 140 mmol/L (137-145)
[2018-06-05] MEDS: PANTOPRAZOLE 40 MG TABLET PO SCH (07:01)
[2018-06-05 07:13] LABS: HCT 37.6 % (39.0-53.0); HGB 12.8 gm/dL (13.0-17.5); MCH 28.8 pg (25.0-35.0); MCHC 34.1 g/dL (31.0-37.0); MCV 84.3 fL (80.0-100.0); Mean Platelet Volume 6.3; Platelet Count 199 k/uL (150-450); RBC 4.45 m/uL (4.30-5.90); RDW 12.9 % (11.5-15.5); WBC 4.1 k/uL (3.8-10.6)
[2018-06-05] MEDS: HEPARIN SODIUM,PORCINE 5,000 UNIT/ML 1 ML VIAL SQ SCH ×2 (08:21→20:23)
[2018-06-05] MEDS: SODIUM CHLORIDE 0.9% 1,000 ML IV SCH (08:22)
--- NOTE | 2018-06-05 08:43 | CC ---
CARDIAC CATHETERIZATION REPORT DATE OF SERVICE: 06/04/2018 PROCEDURE: Left heart catheterization, coronary angiography and aortography. PERFORMED BY: Dr. Barbara Horne. SEDATION: Moderate conscious sedation time was 35 minutes. The patient was administered Versed. Oxygen saturation, hemodynamics and EKG were monitored closely. CLINICAL INFORMATION: Mr. Meir Cage is a 37-year-old gentleman without significant past medical history who came into the hospital with a 1-week history of having fever, body aches and just not feeling well like a URI type symptoms with body aches. His initial troponin was 5.7, but the EKG revealed J-point prominence on all leads and SC depression. I made a clinical diagnosis of myopericarditis and suggested that we will follow him closely. I did not heparinize him. Echo revealed a small to trivial pericardial effusion. However, a few hours later he had chest pain, more constant, intense and also had a troponin that went up to 12.9. In view of this, even though there were no new EKG changes, I recommended coronary angiography and advised that we will perform intervention if indicated. Patient understood the risks, benefits, options, rationale, and we proceeded for the procedure. PROCEDURE NOTE: Under local anesthesia and strict aseptic precautions, a 6-Nepali introducer was placed in the right femoral artery. Using a standard right diagnostic catheter, I performed selective coronary angiography of the right coronary artery. I used a JL4 to perform selective coronary angiography of the left system. With this catheter, I was able to get selective injection of the circumflex which came from a separate origin. I used a 3.5 curved catheter. With this I got selective coronary angiography of the LAD which was superior to circumflex and both of them at separate but parallel ostia. After selective coronary angiography, I used a pigtail catheter to check LV pressures. Then, I performed an aortogram in the IRANIAN projection. Patient tolerated the procedure well. The sheath was taken out and manual compression used to secure hemostasis and he was sent for the CT angiography to rule out any pulmonary embolism. Results were discussed with the patient in detail and also with his by phone. CARDIAC CATHETERIZATION FINDINGS: The left ventricle end-diastolic pressure was 20 mmHg and there was no gradient across aortic valve. AORTOGRAM: This was performed in 30 degree IRANIAN projection. The ascending aorta is of normal caliber. There is no evidence of any dissection. The arch gives off 3 branches. There is no aortic regurgitation. Both coronary origins are noted. This is an unremarkable aortogram. CORONARY ANGIOGRAPHY: RIGHT CORONARY ARTERY : Large dominant vessel, free of significant disease, tortuous distally, has a large PLV, very small PDA. Supplies a small amount of myocardium in the PDA distribution, but large in the PLV distribution. No significant disease. LEFT POSTERIOR CIRCUMFLEX CORONARY ARTERY: This comes off from a separate origin runs laterally. Gives off 2 branches, has minor irregularities. No significant disease. Circumflex therefore is a nondominant vessel comes off a separate origin and no significant disease. LEFT ANTERIOR DESCENDING CORONARY ARTERY: This comes off a separate origin. It is a good caliber and good distribution vessel gives off a good-sized diagonal branch proximally, several small septal branches. Runs all the way to the apex to supply a sizable amount of myocardium. No significant disease in the left anterior descending coronary artery. FINAL IMPRESSION: This patient has a right dominant system. No significant disease in the RCA. The 2 left coronary arteries, circumflex and LAD come from 2 separate origins almost 1 below the other. No significant disease noted. Filling pressures are elevated to 20 mmHg without any gradient across the aortic valve. Aortogram reveals that there is no aortic regurgitation and there is no evidence of any aortic dissection. RECOMMENDATIONS: Findings were discussed with the patient and also with his by telephone. I performed a D-dimer and there is elevation of D-dimer to 1.39. I will perform a CT angio to rule out pulmonary embolism which seems very unlikely. We are probably dealing with a acute myopericarditis. We will continue colchicine. If the CT angio is negative for pulmonary embolism, we will not heparinize the patient. I discussed my thoughts in detail with the patient. MMODL / IJN: [id number] /
[2018-06-05] MEDS ORDERED: HYDROmorphone 0.5 MG/0.5 ML SYRINGE IVP STA (09:13)
[2018-06-05 09:34] LABS: Band Neutrophils % 2 %; Eosinophils # (M) 0.04 k/uL (0-0.7); Myelocytes # (M) 0.04 k/uL (0); Myelocytes % 1 %; Nucleated Red Blood Cells 0 /100 WBC (0-0)
[2018-06-05] MEDS ORDERED: HYDROmorphone 0.5 MG/0.5 ML SYRINGE IVP PRN (10:03)
[2018-06-05 10:04] LABS: Lymphocytes # (M) 1.48 k/uL (1.0-4.8); Metamyelocytes # (M) 0.04 k/uL (0); Metamyelocytes % 1 %; Monocytes # (M) 0.57 k/uL (0-1.0); Neutrophils % (M) 47 %; Total Cells Counted 200
--- NOTE | 2018-06-05 14:11 | P.PN ---
Subjective Progress Note Date: 06/05/18 Patient is a 37-year-old male with no significant PMH who presented to the ED for chest pain and fevers area the patient notes that he was in his usual state of health until about one week ago when he developed URI symptoms with a nonproductive cough, and body aches. A few days later he developed fevers and subsequently went to the urgent care center where he was tested for influenza and was negative. He subsequently then developed substernal chest pain with radiation to the back, 7 out of 10, constant, alleviated by sitting up or leaning forward, and worsened by laying down or taking deep breaths. The chest pain gradually worsened over the past 2-3 days at which point he decided to come to the ED. In the emergency room, the patient underwent an extensive evaluation. He was noted to be febrile to 101F, with normal pulse, blood pressure, and SpO2. Laboratory evaluation revealed an elevated troponin of 5.750, with chest x-ray being unremarkable, and total bilirubin elevated to 1.9. His WBC count was 5.1, hemoglobin 15, platelets low at 116, and creatinine 0.76. On EKG, the patient was noted to have sinus rhythm at 81 bpm with diffuse [place] depression and ST elevations. The patient was subsequently admitted to the medicine service for acute myopericarditis. Following admission, the patient's troponin increased to 12. Cardiology was consulted and recommended cardiac catheterization which revealed normal coronaries. The patient also underwent an echocardiogram which showed left ventricular systolic ejection fraction of 55- 60% with a trivial pericardial effusion and no significant valvular abnormalities. The patient was seen and examined the bedside on 06/05/2018. He notes that his chest pain has improved since yesterday though continues to be 3 out of 10, worsened with laying down. He otherwise denied additional episodes of fever and also denied dysuria, abdominal pain, diarrhea, cough, nausea, vomiting. Objective - Vital Signs Vital signs: Vital Signs Temp 98 F 06/05/18 12:15 Pulse 84 06/05/18 12:15 Resp 18 06/05/18 12:15 BP 127/67 06/05/18 12:15 Pulse Ox 98 06/05/18 12:15 Intake & Output 06/04/18 06/05/18 06/05/18 18:59 06:59 18:59 Intake Total 360 200 360 Output Total 1400 Balance 360 -1200 360 Weight 109.769 kg 109.5 kg Intake: IV 200 Oral 360 360 Output: Urine 1400 Other: Voiding Method Urinal # Voids 3 - Exam General: Non-toxic, in no acute distress, appears stated age, obese HEENT: NC/AT, anicteric sclerae, moist conjunctiva, no lid-lag, PERRLA Cardiovascular: S1/S2 wnl, no murmurs, rubs, or gallops Lungs: Clear to auscultation, normal respiratory effort, no accessory muscle use Abdominal: Soft, non-tender, non-distended, no guarding, rebound, or rigidity Skin: Warm, dry Extremities: No edema or contractures Psychiatric: Alert and oriented to person, place and time, appropriate affect Neuro: CN II-XII grossly intact, Strength 5/5 in all 4 extremities, Speech intact, Sensation to light touch grossly intact throughout - Labs CBC & Chem 7: 06/05/18 05:51 06/05/18 05:51 Labs: Abnormal Lab Results - Last 24 Hours (Table) 06/04/18 06/04/18 06/04/18 Range/Units 12:40 18:45 22:15 Hgb (13.0-17.5) gm/dL Hct (39.0-53.0) % Metamyelocytes # (Man) (0) k/uL Myelocytes # (Manual) (0) k/uL D-Dimer 1.39 H (<0.60) mg/L FEU Glucose (74-99) mg/dL Troponin I 5.750 H* 12.900 H* (0.000-0.034) ng/mL 06/05/18 06/05/18 06/05/18 Range/Units 05:51 05:51 05:51 Hgb 12.8 L (13.0-17.5) gm/dL Hct 37.6 L (39.0-53.0) % Metamyelocytes # (Man) 0.04 H (0) k/uL Myelocytes # (Manual) 0.04 H (0) k/uL D-Dimer (<0.60) mg/L FEU Glucose 108 H (74-99) mg/dL Troponin I 10.200 H* (0.000-0.034) ng/mL Assessment and Plan Plan: Acute viral myopericarditis -Cardiology recommendations appreciated -Echocardiogram reviewed -Status post cardiac cath -Cardiac monitoring -Motrin discontinued and patient started on indomethacin 25 mg 3 times a day -Continue with colchicine 0.6 mg twice a day -Blood cultures obtained -Infectious disease consulted for possibility of additional underlying infections DVT//GI prophylaxis -Heparin -Protonix The patient is admitted with an anticipated greater than 2 midnight stay for evaluation of pericarditis CODE STATUS: Full Code Discussed with: Patient Anticipated discharge date: 06/06/[address]: Home A total of 35 minutes was spent on the care of this complex patient more than 50% of the time was spent in counseling and care coordination
--- NOTE | 2018-06-05 14:12 | PN ---
PROGRESS NOTE Mr. Meir Cage is a gentleman who I admitted yesterday with a myopericarditis type picture. However, his troponin went up substantially and I performed coronary angiography which did not reveal significant disease. The aortogram was unremarkable and CT angio for pulmonary embolism was also negative. He complains of pain. I will give him Dilaudid and colchicine and see how he does. Vital signs stable. S1-S2 heard normally. Right groin is clean and dry. There is no pericardial rub. Lungs are clear. Abdomen and lower extremity exam is unchanged. Continue pain control and antiinflammatory medications and colchicine. Prognosis remains guarded. We will repeat an echo tomorrow. MMODL / IJN: [id number] /
[2018-06-05] MEDS: INDOMETHACIN 25 MG CAP PO SCH ×2 (14:39→20:23)
[2018-06-05] MEDS ORDERED: NITROGLYCERIN SL TABS 0.4 MG TAB SUBLINGUAL ONE (18:01)
--- NOTE | 2018-06-05 20:25 | CONS ---
CONSULTATION DATE OF SERVICE: 06/05/2018. REASON FOR CONSULTATION: Myopericarditis. HISTORY OF PRESENT ILLNESS: The patient is a 37-year-old male, otherwise healthy, started having a fever on Wednesday. Prior to that he was having some sore throat and URI symptoms on the weekend before. The patient also has a 1-year-old daughter at home who has been sick as well. The patient's symptoms persisted and started having a pain mostly in the center of the chest. The patient described the pain to be more of a sharp in nature, almost 7 to 8/10, with no radiation. The patient did have some shortness of breath associated and has mild cough, but not bringing up any sputum. Denies having any nausea or vomiting. No abdominal pain or any diarrhea. With these symptoms, the patient presented to the [facility] ER where the patient was evaluated by the ER physician. On arrival to the hospital the patient did have fever of 101 degrees Fahrenheit. The patient did not have significant tachycardia or hypotension. His white count was normal at 5.1, repeat was 4.1. The patient did have elevated troponin and mildly elevated bilirubin. He did have a CT angiogram that was negative for PE. Blood cultures obtained which are currently pending. The patient subsequently did have a cardiac cath that did not show any evidence of coronary artery disease with diagnosis of myopericarditis. The patient was started on indomethacin. Infectious Disease was consulted for further recommendation regarding antibiotic or any viral therapy. REVIEW OF SYSTEMS: Positive points have been mentioned in HPI. The rest of the systems have been negative. PAST MEDICAL HISTORY: No major illnesses. PAST SURGICAL HISTORY: Left elbow surgery. SOCIAL HISTORY: No smoking. No drinking or drug use. 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 FAMILY HISTORY: Father history of lung cancer and mother from ALS. ALLERGIES: No known drug allergies. MEDICATIONS: The patient is currently on Tylenol, colchicine, heparin, Dilaudid, Indocin, Narcan, Zofran, Protonix. PHYSICAL EXAMINATION: Blood pressure is 160/69 with a pulse of 81, temperature 100.1. He is 96% on room air. GENERAL DESCRIPTION: A middle-aged male lying in bed in no distress. No tachypnea or accessory muscle of respiration use. HEENT: Shows pallor. No scleral icterus. Oral mucosa is dry. No pharyngeal erythema or thrush. NECK: Trachea central no thyromegaly. LUNGS: Unlabored breathing clear to auscultation. No wheeze or crackle. HEART: S1, S2. Regular rate and rhythm. ABDOMEN: Soft, no tenderness. No guarding or rigidity. No organomegaly. EXTREMITIES: No edema of the feet. SKIN: No rashes or mass palpable. NEUROLOGIC: The patient is awake, alert, oriented. Mood and affect normal. LABS: Hemoglobin is 12.1, white count 4.1 with a BUN of 13, creatinine 0.83. Electrolytes have been normal. Troponin has been elevated. Influenza serology has been negative. DIAGNOSTIC IMPRESSION AND PLAN: Patient admitted to the hospital with chest pain, pleuritic. The patient did have a fever, no white count, no tachycardia. No other clinical focus of infection. CT angiogram was negative for PE. No abdominal symptoms. Likely representing a myopericarditis and likely viral etiology. Either Coxsackie or other related viruses. Treatment will be mostly supportive. PLAN: 1. The patient to continue with medication started already in the form of colchicine and indomethacin. 2. No need for any specific antiviral therapy or antiviral testing as by the time those results will be available the patient already recovered. 3. We will keep him on his clinical course closely, pending echocardiogram tomorrow to determine evidence of any pericardial effusion. Continue supportive care. All questions were answered. RAH / HÉCTOR: [id number] /
[2018-06-05 20:41] VITALS: RESP 16
[2018-06-06 07:41] LABS: Anion Gap 3 mmol/L; Blood Urea Nitrogen 12 mg/dL (9-20); Calcium 8.3 mg/dL (8.4-10.2); Carbon Dioxide 31 mmol/L (22-30); Chloride 104 mmol/L (98-107); Glucose 105 mg/dL (74-99); Potassium 4.1 mmol/L (3.5-5.1); Sodium 138 mmol/L (137-145)
[2018-06-06 07:54] LABS: HGB 12.4 gm/dL (13.0-17.5); MCH 28.7 pg (25.0-35.0); MCHC 34.5 g/dL (31.0-37.0); MCV 83.2 fL (80.0-100.0); Platelet Count 208 k/uL (150-450); RBC 4.32 m/uL (4.30-5.90); RDW 13.2 % (11.5-15.5); WBC 4.9 k/uL (3.8-10.6)
[2018-06-06] MEDS: PANTOPRAZOLE 40 MG TABLET PO SCH (09:07)
[2018-06-06] MEDS: COLCHICINE 0.6 MG EACH PO SCH (09:07)
[2018-06-06] MEDS: HEPARIN SODIUM,PORCINE 5,000 UNIT/ML 1 ML VIAL SQ SCH (09:07)
[2018-06-06] MEDS: INDOMETHACIN 25 MG CAP PO SCH ×2 (09:08→16:36)
[2018-06-06 11:04] VITALS: TEMP 97.7
[2018-06-06 15:26] VITALS: BP 109/73; PULSE 85
--- NOTE | 2018-06-06 17:38 | P.DS ---
Providers Date of admission: 06/05/18 14:04 Expected date of discharge: 06/06/18 Attending physician: Sam Jensen MD Consults: 06/04/18 14:01 Consult Physician Stat Consulting Provider: John Horne Consult Reason/Comments: myocarditis Do you want consulting provider notified?: Yes 06/05/18 11:34 Consult Physician Urgent Consulting Provider: Hitesh Jovel Consult Reason/Comments: Febrile w/ myopericarditis Do you want consulting provider notified?: Yes Primary care physician: Stated None Hospital Course: Patient is a 37-year-old male with no significant PMH who presented to the ED for chest pain and fevers area the patient notes that he was in his usual state of health until about one week ago when he developed URI symptoms with a nonproductive cough, and body aches. A few days later he developed fevers and subsequently went to the urgent care center where he was tested for influenza and was negative. He subsequently then developed substernal chest pain with radiation to the back, 7 out of 10, constant, alleviated by sitting up or leaning forward, and worsened by laying down or taking deep breaths. The chest pain gradually worsened over the past 2-3 days at which point he decided to come to the ED. In the emergency room, the patient underwent an extensive evaluation. He was noted to be febrile to 101F, with normal pulse, blood pressure, and Sp O2. Laboratory evaluation revealed an elevated troponin of 5.750, with chest x- ray being unremarkable, and total bilirubin elevated to 1.9. His WBC count was 5.1, hemoglobin 15, platelets low at 116, and creatinine 0.76. On EKG, the patient was noted to have sinus rhythm at 81 bpm with diffuse NV depression and ST elevations. The patient was subsequently admitted to the medicine service for acute myopericarditis. Following admission, the patient's troponin increased to 12. Cardiology was consulted and recommended cardiac catheterization which revealed normal coronaries. The patient also underwent an echocardiogram which showed left ventricular systolic ejection fraction of 55- 60% with a trivial pericardial effusion and no significant valvular abnormalities. Infectious disease was consulted and recommended a likely viral etiology for the myopericarditis with no additional workup. The patient's chest pain subsequently resolved and his troponins down trended. He was subsequently cleared by cardiology and was ready and agreeable for discharge to home. He was seen on the day of discharge and reported no further chest pain, shortness of breath, fever, chills, nausea, vomiting, palpitations, or any additional complaints. He was advised that if this pain recurs or he develops any additional symptoms, to return to the ED. Physical Examination General: Non-toxic, in no acute distress, appears stated age, normal weight HEENT: NC/AT, anicteric sclerae, moist conjunctiva, no lid-lag, PERRLA Cardiovascular: S1/S2 wnl, no murmurs, rubs, or gallops Lungs: Clear to auscultation, normal respiratory effort, no accessory muscle use Abdominal: Soft, non-tender, non-distended, no guarding, rebound, or rigidity Skin: Warm, dry Extremities: No edema or contractures Psychiatric: Alert and oriented to person, place and time, appropriate affect Neuro: CN II-XII grossly intact, Strength 5/5 in all 4 extremities, Speech intact, Sensation to light touch grossly intact throughout Discharge diagnosis: Acute viral myopericarditis; obesity A total of 35 minutes of time were spent preparing this complex discharge summary. Pertinent Studies: As per HPI Procedures: As per HPI Patient Condition at Discharge: Stable Plan - Discharge Summary Discharge Rx Participant: No New Discharge Prescriptions: New Colchicine [Colcrys] 0.6 mg PO BID #60 each Indomethacin [Indocin] 25 mg PO TID #90 cap Pantoprazole [Protonix] 40 mg PO AC-BRKFST #30 tablet. No Action Ibuprofen [Motrin Ib] 400 mg PO Q6HR PRN PRN Reason: Pain Or Fever > 100.5 Discharge Medication List Ibuprofen [Motrin Ib] 400 mg PO Q6HR PRN 06/04/18 [History] Colchicine [Colcrys] 0.6 mg PO BID #60 each 06/06/18 [Rx] Indomethacin [Indocin] 25 mg PO TID #90 cap 06/06/18 [Rx] Pantoprazole [Protonix] 40 mg PO AC-BRKFST #30 tablet. 06/06/18 [Rx] Follow up Appointment(s)/Referral(s): John Horne MD [STAFF PHYSICIAN] - 06/23/18 10:00 am () None,Stated [Primary Care Provider] - 1-2 days (Please find and schedule an appointment with a primary care physician) Patient Instructions/Handouts: *Surgery [facility] - After Heart Catheterization - Foundry Technician Instructions, Left Heart Catheterization (DC), Myocarditis (DC) Discharge Disposition: HOME SELF-CARE
--- NOTE | 2018-06-06 21:32 | PN ---
PROGRESS NOTE Mr. Cage is a gentleman with a myopericarditis. This morning he is completely free of symptoms. His EKG reveals evolving changes of pericarditis. Yesterday evening there was ST elevation. Now there is T-wave inversion. He is asymptomatic. There is no rub audible. Vitals are stable. S1, S2 heard normally. Lungs are clear. Abdomen and lower extremity exam unchanged. Plan is to continue Indocin and colchicine and Protonix, increase activity. Possible discharge after reviewing the echocardiogram. Discussed my thoughts in detail with the patient. I will see the patient in a week or two. MMODL / IJN: [id number] /
--- NOTE | 2018-06-07 00:28 | PN ---
PROGRESS NOTE DATE OF SERVICE: 06/06/2018 REASON FOR FOLLOWUP: Viral myopericarditis. INTERVAL HISTORY: The patient was seen on rounds earlier this afternoon. The patient has been afebrile. The patient's chest pain has resolved. Very minimal cough. Not bringing up any sputum. No nausea. No vomiting. No abdominal pain or any diarrhea. PHYSICAL EXAMINATION: Blood pressure 109/73 with a pulse of 85, temperature 97.7. He is 96% on room air. General description is a middle-aged male lying in bed in no distress. RESPIRATORY SYSTEM: Unlabored breathing. Clear to auscultation anteriorly. HEART: S1, S2. Regular rate and rhythm. ABDOMEN: Soft. No tenderness. LABS: Hemoglobin is 12.4, white count 4.9 with a BUN of 12, creatinine 0.83. Blood culture has been negative. DIAGNOSTIC IMPRESSION AND PLAN: Patient admitted to hospital with chest pain which has been diagnosed as viral myopericarditis. He seems to be responding to anti-inflammatory medication. That will be continued. No need for any of the antivirals. All his questions and concerns were answered. Continue with supportive care. MMODL / IJN: [id number] /
--- NOTE | 2018-06-07 12:07 | ECHOF ---
Referral Reason:assess lvf MEASUREMENTS -------- HEIGHT: 182.9 cm WEIGHT: 108.9 kg BP: 114/76 RVIDd: 3.1 cm (< 3.3) IVSd: 1.2 cm (0.6 - 1.1) LVIDd: 5.2 cm (3.9 - 5.3) LVPWd: 1.2 cm (0.6 - 1.1) IVSs: 1.5 cm LVIDs: 3.7 cm LVPWs: 1.5 cm LAESV Index (A-L): 25.42 ml/m Ao Diam: 2.9 cm (2.0 - 3.7) AV Cusp: 2.3 cm (1.5 - 2.6) LA Diam: 3.4 cm (2.7 - 3.8) EPSS: 0.3 cm MV E Benito: 0.59 m/s MV DecT: 287 ms MV A Benito: 0.62 m/s MV E/A Ratio: 0.95 AV maxP.50 mmHg AV meanP.88 mmHg RAP: 5.00 mmHg RVSP: 11.02 mmHg MV EF SLOPE: 139.84 mm/s (70 - 150) MV EXCURSION: 2.45 cm (> 18.000) FINDINGS -------- Sinus rhythm. This was a technically adequate study. The left ventricular size is normal. There is mild concentric left ventricular hypertrophy. Overa ll left ventricular systolic function is normal with, an EF between 55 - 60 %. The right ventricle is normal in size and function. Normal LA size by volume 22+/-6 ml/m2. The right atrium is normal in size. The aortic valve is trileaflet, and appears structurally normal. No aortic stenosis or regurgitation. The mitral valve leaflets are mildly thickened. There is trace to mild mitral regurgitation. Trace tricuspid regurgitation present. Right ventricular systolic pressure is normal at < 35 mmHg. There is no evidence of pulmonary hypertension. Trace/mild (physiologic) pulmonic regurgitation. The aortic root size is normal. Normal inferior vena cava with normal inspiratory collapse consistent with estimated right atrial pre ssure of 5 mmHg. There is no pericardial effusion. CONCLUSIONS -------- 1. Sinus rhythm. 2. This was a technically adequate study. 3. The left ventricular size is normal. 4. There is mild concentric left ventricular hypertrophy. 5. Overall left ventricular systolic function is normal with, an EF between 55 - 60 %. 6. Normal LA size by volume 22+/-6 ml/m2. 7. The aortic valve is trileaflet, and appears structurally normal. No aortic stenosis or regurgitati on. 8. The mitral valve leaflets are mildly thickened. 9. There is trace to mild mitral regurgitation. 10. Trace tricuspid regurgitation present. 11. Right ventricular systolic pressure is normal at < 35 mmHg. 12. There is no evidence of pulmonary hypertension. 13. Trace/mild (physiologic) pulmonic regurgitation. 14. The aortic root size is normal. 15. There is no pericardial effusion. SENIOR MECHANICAL ESTIMATOR: Josué Levine RDCS
== END 2018-06-06 18:13 | disposition home or self-care (01) | DRG 287 ==
LOC: EC 11:45 → 3SCARD 14:09 → INTOOBSV 14:09 → OBSVTOIN 06-05 14:04
PROVIDERS: ADMIT Internal Medicine; ATTEND Internal Medicine
PROC: B3101ZZ Fluoroscopy of Thoracic Aorta using Low Osmolar Contrast (ICD-10-PCS; 2018-06-04)
PROC: 4A023N7 Measurement of Cardiac Sampling and Pressure, Left Heart, Percutaneous Approach (ICD-10-PCS; principal; 2018-06-04 21:53)
PROC: B2111ZZ Fluoroscopy of Multiple Coronary Arteries using Low Osmolar Contrast (ICD-10-PCS; 2018-06-04 21:53)
DX: I30.1 Infective pericarditis (principal); Q25.0 Patent ductus arteriosus; E66.9 Obesity, unspecified; B97.89 Other viral agents as the cause of diseases classified elsewhere; Z68.32 Body mass index [BMI] 32.0-32.9, adult
CPT/HCPCS: 36415; 71046; 71275; 80048; 80053; 83605; 83880; 84484; 85025; 85027; 85347; 85379; 87040; 87502; 93005; 93306; 93458; 93567; 99284

== ENCOUNTER 2018-06-16 14:04 | Emergency (ER) | payer BC ==
[2018-06-16 14:10] VITALS: RESP 18
--- NOTE | 2018-06-16 15:07 | ED ---
General Adult HPI - General Chief complaint: Recheck/Abnormal Lab/Rx Stated complaint: leg swelling/bruising post op Time Seen by Provider: 06/16/18 14:32 Source: patient, RN notes reviewed, old records reviewed Mode of arrival: ambulatory Limitations: no limitations - History of Present Illness Initial comments: Patient is a 38-year-old male who presents emergency Department today with complaints of right groin pain. Patient reports that he had a cardiac catheterization approximately one week ago. He states he's noticed some significant bruising around the right groin site. Patient states that he has no pain or swelling rating down the leg into the calf. He complains of some hamstring pain. Patient states that he didn't have this much bruising when he left the hospital. - Related Data Previous Rx's Medication Instructions Recorded Colchicine [Colcrys] 0.6 mg PO BID #60 each 06/06/18 Indomethacin [Indocin] 25 mg PO TID #90 cap 06/06/18 Pantoprazole [Protonix] 40 mg PO AC-BRKFST #30 tablet. 06/06/18 Allergies Allergy/AdvReac Type Severity Reaction Status Date / Time No Known Allergies Allergy Verified 06/16/18 14:46 Review of Systems ROS Statement: Those systems with pertinent positive or pertinent negative responses have been documented in the HPI. ROS Other: All systems not noted in ROS Statement are negative. Past Medical History Past Medical History: No Reported History Additional Past Medical History / Comment(s): HAS BEEN HAVING DIFFICULTY SWALLOWING. SEASONAL ALLERGIES History of Any Multi-Drug Resistant Organisms: None Reported Past Surgical History: Orthopedic Surgery Additional Past Surgical History / Comment(s): left elbow surgery, Past Anesthesia/Blood Transfusion Reactions: Motion Sickness Past Psychological History: No Psychological Hx Reported Smoking Status: Never smoker Past Alcohol Use History: None Reported Past Drug Use History: None Reported - Past Family History Father Family Medical History: Cancer Additional Family Medical History / Comment(s): LUNG Mother Family Medical History: Musculoskeletal Disorder Additional Family Medical History / Comment(s): FROM ALS General Exam - General Exam Comments Initial Comments: 38-year-old male. Alert and oriented. No distress. Limitations: no limitations General appearance: alert, in no apparent distress Head exam: Present: atraumatic, normocephalic, normal inspection Eye exam: Present: normal appearance, PERRL, EOMI. Absent: scleral icterus, conjunctival injection, periorbital swelling ENT exam: Present: normal exam, mucous membranes moist Neck exam: Present: normal inspection. Absent: tenderness, meningismus, lymphadenopathy Respiratory exam: Present: normal lung sounds bilaterally. Absent: respiratory distress, wheezes, rales, rhonchi, stridor Cardiovascular Exam: Present: regular rate GI/Abdominal exam: Present: soft, normal bowel sounds. Absent: distended, tenderness, guarding, rebound, rigid Extremities exam: Present: normal inspection, full ROM, normal capillary refill. Absent: tenderness, pedal edema, joint swelling, calf tenderness Right Upper Leg exam: Present: full ROM, tenderness, ecchymosis (in R groin). Absent: normal inspection, swelling, abrasion, laceration, deformity, crepitus, dislocation, erythema Knee exam: Present: normal inspection, full ROM Lower Leg exam: Present: normal inspection, full ROM Ankle exam: Present: normal inspection, full ROM Foot/Toe exam: Present: normal inspection, full ROM Neurovascular tendon exam: Present: no vascular compromise Gait: observed and normal Back exam: Present: normal inspection Neurological exam: Present: alert, oriented X3, CN II-XII intact Psychiatric exam: Present: normal affect, normal mood Skin exam: Present: warm, dry, intact, normal color. Absent: rash Course Vital Signs 06/16/18 06/16/18 14:07 16:15 Temperature 98.5 F 98.3 F Pulse Rate 86 72 Respiratory 18 18 Rate Blood Pressure 139/92 135/89 O2 Sat by Pulse 98 97 Oximetry Medical Decision Making - Medical Decision Making 38 yea rold male with one week of R groin pain after cardiac cath. Patient has recent Dx of myocarditis. He is not on anticoagulation at this time. He has bruising and tenderness over R groin following procedure. Discussed US for Pseudoanuerysm to be completed. He has normal pulse and sensation. PAtient US is negative for anuerysm. Discussed PCP and cardio follow up. - Radiology Data Radiology results: report reviewed US is negative for pseudoanuerysm of R Groin. Disposition Clinical Impression: Traumatic ecchymosis of groin Disposition: HOME SELF-CARE Condition: Good Instructions (If sedation given, give patient instructions): Ecchymosis (ED) Additional Instructions: Patient states why ice over the swelling in area of the groin. Follow-up with primary care doctor. Return to the emergency department if any alarming signs or symptoms occur. Is patient prescribed a controlled substance at d/c from ED?: No Referrals: None,Stated [Primary Care Provider] - 1-2 days Time of Disposition: 15:58
--- NOTE | 2018-06-16 15:22 | US ---
EXAMINATION TYPE: US lower ext pseudo artery RT DATE OF EXAM: 06/16/2018 COMPARISON: NONE CLINICAL HISTORY: Pain. Post catheterization. Right groin bruising. EXAM PERFORMED: Grayscale and color Doppler duplex imaging performed of the groin, post cardiac judith ter to assess for pseudoaneurysm. SIDE PERFORMED: Right Color and Waveform Doppler performed to assess for the presence of pseudoaneurysm; Is there ultrasound evidence of a pseudoaneurysm: No Is there evidence of AV shunting: No Is there a fluid collection present: No Normal appearing benign lymph node node seen measurin.4 x 0.8 cm IMPRESSION: No ultrasound evidence for pseudoaneurysm. No hematoma noted.
[2018-06-16 16:31] VITALS: BP 135/89; PULSE 72; TEMP 98.3
== END 2018-06-16 16:15 | disposition home or self-care (01) ==
LOC: EC 14:04
DX: S30.1XXA Contusion of abdominal wall, initial encounter (principal); Z95.818 Presence of other cardiac implants and grafts
CPT/HCPCS: 99284

== ENCOUNTER → 2019-05-01 | Outpatient (CLI) | payer BC ==
--- NOTE | 2019-05-01 08:27 | CT ---
EXAMINATION TYPE: CT brain wo con DATE OF EXAM: 05/01/2019 COMPARISON: None HISTORY: Headache/dizziness CT DLP: [address] of the brain was performed. The ventricles, basal cisterns and sulci overlying the cerebral convexities demonstrate a normal appe arance. There is no evidence for intracranial hemorrhage or sulcal effacement. No mass effects are seen. Osseous calvarium is intact. Sinusitis left maxillary sinus with air-fluid level seen. Chronic ethmoi ade sinusitis noted as well. If symptoms persist consider MRI as clinically warranted. IMPRESSION: 1. No acute intracranial process is seen at this time. Sinusitis.
== END | disposition home or self-care (01) ==
LOC: RADCTMAIN 07:55
PROVIDERS: ATTEND Family Medicine
DX: R51 Headache (principal); R94.31 Abnormal electrocardiogram [ECG] [EKG]
CPT/HCPCS: 70450

== ENCOUNTER 2020-03-06 21:07 | Emergency (ER) | payer BC ==
--- NOTE | 2020-03-06 21:24 | ED ---
General Adult HPI - General Chief complaint: Fever Stated complaint: SOB/Fever Time Seen by Provider: 03/06/20 21:18 Source: patient Mode of arrival: ambulatory Limitations: no limitations - History of Present Illness Initial comments: Patient presents the ED complaining of having a cough and dyspnea for the past 2 days. Patient also states that he has developed a fever today, and he reports that he had a temperature of 100 Fahrenheit earlier today. Patient states that he took a dose of ibuprofen about 5-6 hours ago. Patient denies known sick con tact. Patient denies having any pain, headache, neck pain or stiffness, sore throat, nasal congestion, chest pain, hemoptysis, palpitations, dizziness, abdominal pain, nausea/vomiting/diarrhea, dysuria or urinary symptoms, leg or calf swelling or pain, rash, or any other symptoms or complaints. - Related Data Home Medications Medication Instructions Recorded Confirmed Ibuprofen [Motrin Ib] 400 mg PO Q8H PRN 03/06/20 03/06/20 Phenylephrine/Dm/Acetaminop/GG 30 ml PO Q6H PRN 03/06/20 03/06/20 [Vicks Dayquil Severe Cold-Flu] Previous Rx's Medication Instructions Recorded Doxycycline Hyclate 100 mg PO BID 10 Days #20 tab 03/06/20 Allergies Allergy/AdvReac Type Severity Reaction Status Date / Time No Known Allergies Allergy Verified 03/06/20 21:25 Review of Systems ROS Statement: Those systems with pertinent positive or pertinent negative responses have been documented in the HPI. ROS Other: All systems not noted in ROS Statement are negative. Past Medical History Past Medical History: No Reported History Additional Past Medical History / Comment(s): HAS BEEN HAVING DIFFICULTY SWALLOWING. SEASONAL ALLERGIES History of Any Multi-Drug Resistant Organisms: None Reported Past Surgical History: Orthopedic Surgery Additional Past Surgical History / Comment(s): left elbow surgery, Past Anesthesia/Blood Transfusion Reactions: Motion Sickness Past Psychological History: No Psychological Hx Reported Smoking Status: Never smoker Past Alcohol Use History: None Reported Past Drug Use History: None Reported - Past Family History Father Family Medical History: Cancer Additional Family Medical History / Comment(s): LUNG Mother Family Medical History: Musculoskeletal Disorder Additional Family Medical History / Comment(s): FROM ALS General Exam Limitations: no limitations General appearance: alert, in no apparent distress Head exam: Present: atraumatic, normocephalic Eye exam: Present: normal appearance, EOMI ENT exam: Present: normal oropharynx, mucous membranes moist Neck exam: Present: other (Trachea is in midline). Absent: tenderness, meningismus Respiratory exam: Present: normal lung sounds bilaterally. Absent: respiratory distress, wheezes, rales, rhonchi, stridor Cardiovascular Exam: Present: regular rate, normal rhythm, normal heart sounds, other (Normal radial pulses bilaterally) GI/Abdominal exam: Present: soft. Absent: distended, tenderness, guarding Extremities exam: Present: other (Negative Homans sign bilaterally). Absent: tenderness, pedal edema, calf tenderness Neurological exam: Present: alert, oriented X3. Absent: motor sensory deficit Psychiatric exam: Present: normal affect, normal mood Skin exam: Present: warm, dry, intact, normal color Course Vital Signs 03/06/20 03/06/20 21:11 21:40 Temperature 99.9 F H Pulse Rate 96 Respiratory 22 18 Rate Blood Pressure 168/72 O2 Sat by Pulse 98 Oximetry - Reevaluation(s) Reevaluation #1: 03/06/20 23:41 Patient denies development of any new symptoms while in the ED. Patient remains alert and breathing comfortably with a normal room air oxygen saturation. Kiarra kim is aware of his test results, and he feels comfortable going home at this time. Patient was counseled about pneumonia, and he was clearly explained return and follow-up instructions. Patient was instructed to follow up closely with a primary care provider. Patient feels comfortable with this plan. Medical Decision Making - Medical Decision Making Patient's chest x-ray reveals a right lower lobe infiltrate. Patient's viral studies, including coronavirus, are negative. Patient's d-dimer is also negative. Patient is breathing comfortably in the ED with a normal room air oxygen saturation. I suspect that the patient's symptoms are likely secondary to community-acquired pneumonia. Patient was given a dose of doxycycline while in the ED, and he was discharged home with a prescription for a ten-day course of doxycycline. - Lab Data Result diagrams: 03/06/20 22:19 03/06/20 22:19 Lab Results 03/06/20 03/06/20 03/06/20 Range/Units 21:37 22:19 22:19 WBC (3.8-10.6) k/uL RBC (4.30-5.90) m/uL Hgb (13.0-17.5) gm/dL Hct (39.0-53.0) % MCV (80.0-100.0) fL MCH (25.0-35.0) pg MCHC (31.0-37.0) g/dL RDW (11.5-15.5) % Plt Count (150-450) k/uL MPV Neutrophils % % Lymphocytes % % Monocytes % % Eosinophils % % Basophils % % Neutrophils # (1.3-7.7) k/uL Lymphocytes # (1.0-4.8) k/uL Monocytes # (0-1.0) k/uL Eosinophils # (0-0.7) k/uL Basophils # (0-0.2) k/uL Hyperchromasia PT 9.9 (9.0-12.0) sec INR 1.0 (<1.2) APTT 26.4 (22.0-30.0) sec D-Dimer 0.45 (<0.60) mg/L FEU Sodium 140 (137-145) mmol/L Potassium 4.0 (3.5-5.1) mmol/L Chloride 105 (98-107) mmol/L Carbon Dioxide 28 (22-30) mmol/L Anion Gap 7 mmol/L BUN 17 (9-20) mg/dL Creatinine 0.94 (0.66-1.25) mg/dL Est GFR (CKD-EPI)AfAm >90 (>60 ml/min/1.73 sqM) Est GFR (CKD-EPI)NonAf >90 (>60 ml/min/1.73 sqM) Glucose 123 H (74-99) mg/dL Plasma Lactic Acid Rasheed (0.7-2.0) mmol/L Calcium 9.0 (8.4-10.2) mg/dL Influenza Type A (PCR) Not Detected (Not Detectd) Influenza Type B (PCR) Not Detected (Not Detectd) RSV (PCR) Not Detected (Not Detectd) SARS-CoV-2 (PCR) Not Detected (Not Detectd) 03/06/20 03/06/20 Range/Units 22:19 22:19 WBC 5.3 (3.8-10.6) k/uL RBC 5.09 (4.30-5.90) m/uL Hgb 15.3 (13.0-17.5) gm/dL Hct 42.3 (39.0-53.0) % MCV 83.0 (80.0-100.0) fL MCH 30.1 (25.0-35.0) pg MCHC 36.3 (31.0-37.0) g/dL RDW 12.3 (11.5-15.5) % Plt Count 219 (150-450) k/uL MPV 6.8 Neutrophils % 51 % Lymphocytes % 32 % Monocytes % 10 % Eosinophils % 3 % Basophils % 1 % Neutrophils # 2.7 (1.3-7.7) k/uL Lymphocytes # 1.7 (1.0-4.8) k/uL Monocytes # 0.5 (0-1.0) k/uL Eosinophils # 0.1 (0-0.7) k/uL Basophils # 0.0 (0-0.2) k/uL Hyperchromasia Slight PT (9.0-12.0) sec INR (<1.2) APTT (22.0-30.0) sec D-Dimer (<0.60) mg/L FEU Sodium (137-145) mmol/L Potassium (3.5-5.1) mmol/L Chloride (98-107) mmol/L Carbon Dioxide (22-30) mmol/L Anion Gap mmol/L BUN (9-20) mg/dL Creatinine (0.66-1.25) mg/dL Est GFR (CKD-EPI)AfAm (>60 ml/min/1.73 sqM) Est GFR (CKD-EPI)NonAf (>60 ml/min/1.73 sqM) Glucose (74-99) mg/dL Plasma Lactic Acid Rasheed 1.3 (0.7-2.0) mmol/L Calcium (8.4-10.2) mg/dL Influenza Type A (PCR) (Not Detectd) Influenza Type B (PCR) (Not Detectd) RSV (PCR) (Not Detectd) SARS-CoV-2 (PCR) (Not Detectd) - Radiology Data Radiology results: image reviewed (Chest x-ray shows a right lower lobe infiltrate) Disposition Clinical Impression: Pneumonia Disposition: HOME SELF-CARE Condition: Stable Instructions (If sedation given, give patient instructions): Fever in Adults (ED), Pneumonia (ED) Additional Instructions: Return to the ER immediately should you develop increased shortness of breath, a high fever, any significant pain, feeling dizzy or faint, or new or worsening symptoms. Follow up closely with your primary care provider. Prescriptions: Doxycycline Hyclate 100 mg PO BID 10 Days #20 tab Is patient prescribed a controlled substance at d/c from ED?: No Referrals: None,Stated [Primary Care Provider] - 1-2 days Amadou Ford MD [REFERRING] - 1-2 days Time of Disposition: 23:44
--- NOTE | 2020-03-06 21:51 | XR ---
EXAMINATION TYPE: XR chest 2V DATE OF EXAM: 03/06/2020 COMPARISON: 06/04/2018 HISTORY: Cough. Short of breath. TECHNIQUE: FINDINGS: There is a patch of airspace infiltrate in the right lower lobe laterally. The other lung f ields are clear. Heart and mediastinum are normal. Pulmonary vascularity is normal. There are no niyah r masses. There is no pleural effusion. IMPRESSION: There is right lower lobe pneumonia that is new compared to old exam. Normal heart.
[2020-03-06 23:12] LABS: Basophils % (A) 1 %; Eosinophils # (A) 0.1 k/uL (0-0.7); Eosinophils % (A) 3 %; HCT 42.3 % (39.0-53.0); HGB 15.3 gm/dL (13.0-17.5); Hyperchromasia Slight; Lymphocytes # (A) 1.7 k/uL (1.0-4.8); Lymphocytes % (A) 32 %; MCH 30.1 pg (25.0-35.0); MCHC 36.3 g/dL (31.0-37.0); Mean Platelet Volume 6.8; Monocytes # (A) 0.5 k/uL (0-1.0); Monocytes % (A) 10 %; Neutrophils # (A) 2.7 k/uL (1.3-7.7); Neutrophils % (A) 51 %; Platelet Count 219 k/uL (150-450); RBC 5.09 m/uL (4.30-5.90); RDW 12.3 % (11.5-15.5); WBC 5.3 k/uL (3.8-10.6)
[2020-03-06 23:27] LABS: African American GFR (CKD) >90 (>60 ml/min/1.73 sqM); Anion Gap 7 mmol/L; Blood Urea Nitrogen 17 mg/dL (9-20); Carbon Dioxide 28 mmol/L (22-30); Chloride 105 mmol/L (98-107); Glucose 123 mg/dL (74-99); Non-African American GFR(CKD) >90 (>60 ml/min/1.73 sqM); Sodium 140 mmol/L (137-145)
[2020-03-06 23:32] LABS: D-Dimer 0.45 mg/L FEU (<0.60); Partial Thromboplastin Time 26.4 sec (22.0-30.0); Prothrombin Time 9.9 sec (9.0-12.0)
[2020-03-06] MEDS ORDERED: DOXYCYCLINE 100 MG CAP PO STA (23:40)
[2020-03-07 00:05] VITALS: BP 170/65; PULSE 80; RESP 17; TEMP 98.9
== END 2020-03-07 00:05 | disposition home or self-care (01) ==
LOC: EC 21:07
DX: J18.9 Pneumonia, unspecified organism (principal); Z20.828 Contact with and (suspected) exposure to other viral communicable diseases
CPT/HCPCS: 36415; 71046; 80048; 83605; 85025; 85379; 85610; 85730; 87040; 87636; 99283

== ENCOUNTER 2021-07-25 01:47 | Emergency (ER) | payer BC | END 2021-07-25 09:58 | disposition left against medical advice (07) | LOC: EC 01:47 | DX: Z53.21 Procedure and treatment not carried out due to patient leaving prior to being seen by health care provider (principal) | CPT/HCPCS: 99499 ==

== ENCOUNTER → 2022-03-31 | Outpatient (CLI) | payer OTHER ==
--- NOTE | 2022-03-31 14:45 | XR ---
EXAMINATION TYPE: XR hand complete LT DATE OF EXAM: 03/31/2022 COMPARISON: NONE HISTORY: Pain TECHNIQUE: Three views are submitted. FINDINGS: The osseous structures are intact. The joint spaces are preserved and there is no acute fracture or dislocation. IMPRESSION: 1. No definite acute fracture or dislocation if symptoms persist, follow-up study in 7 to 10 days wo uld be suggested
== END | disposition home or self-care (01) ==
LOC: RADXRMAIN 14:11
PROVIDERS: ATTEND Emergency Medicine
DX: S60.222A Contusion of left hand, initial encounter (principal); S63.613A Unspecified sprain of left middle finger, initial encounter; S63.615A Unspecified sprain of left ring finger, initial encounter; X58.XXXA Exposure to other specified factors, initial encounter